=== PATIENT | female | born 1990 | race Two or more races ===

== ENCOUNTER 2021-07-10 09:29 | Emergency (ER) | payer SELFPAY ==
[~2021-07-10] VITALS: Ht 167.6 cm; Wt 108.6 kg
[2021-07-10] MEDS ORDERED: IBUPROFEN 200 MG TABLET. PO ONE (10:00)
[2021-07-10] MEDS ORDERED: ACETAMINOPHEN 500 MG TABLET PO ONE (10:00)
--- NOTE | 2021-07-10 10:11 | PHYS DOC ---
General Adult EDM: Chief Complaint: FLU SYMPTOM HPI: HPI: Patient is a 30 year old female [place] who presents with 1.5 days of sore throat, fever/chills, and myalgias. Symptoms have been progressive since yesterday. She had a 1 minute episode of chest pressure that was self resolving. Not exertional. Not pleuritic. No lower extremity edema, redness, recent immobilizations, or surgery. No medications. Denies any associated cough. No throat pain with head/neck movements. Has not received Covid vaccination. Denies sick contacts including any Covid contact. Review of Systems: Review of Systems: Constitutional: Reports subjective fever and chills Eyes: Denies change in visual acuity. [] HENT: Denies nasal congestion. Reports sore throat. Respiratory: Denies cough or shortness of breath. [] Cardiovascular: Reports brief self resolved chest pain. Denies edema. [] GI: Denies abdominal pain, nausea, vomiting, bloody stools or diarrhea. [] : Denies dysuria. [] Musculoskeletal: Reports myalgias. Denies back pain or joint pain. [] Integument: Denies rash. [] Neurologic: Denies headache, focal weakness or sensory changes. [] Endocrine: Denies polyuria or polydipsia. [] Lymphatic: Denies swollen glands. [] Psychiatric: Denies depression or anxiety. [] Heart Score: C/O Chest Pain: Yes HEART Score for Chest Pain: HEART Score for Chest Pain Response (Comments) Value History Slighlty/Non-Suspicious 0 Age < 45 0 Risk Factors No Risk Factors 0 Total 0 Risk Factors: Risk Factors: DM, Current or recent (<one month) smoker, HTN, HLP, family history of CAD, obesity. Risk Scores: Score 0 - 3: 2.5% MACE over next 6 weeks - Discharge Home Score 4 - 6: 20.3% MACE over next 6 weeks - Admit for Clinical Observation Score 7 - 10: 72.7% MACE over next 6 weeks - Early Invasive Strategies Current Medications: Current Medications Medications (Trade) Dose Ordered Sig/Elizabeth Start Time Stop Time Status Last Admin Dose Admin Acetaminophen (Tylenol) 1,000 mg 1X ONCE 07/10/21 10:00 07/10/21 10:01 UNV Ibuprofen (Motrin) 600 mg 1X ONCE 07/10/21 10:00 07/10/21 10:01 UNV Physical Exam: PE: Constitutional: Well developed, well nourished, no acute distress, non-toxic appearance. [] HENT: Uvula midline, mild posterior oropharyngeal erythema, edematous tonsils with exudates bilaterally. No stridor. Moves neck freely side to side without difficulty. Left anterior tender cervical lymphadenopathy. Eyes: PERRLA, EOMI, conjunctiva normal, no discharge. [] Cardiovascular:Heart rate regular rhythm, no murmur [] Lungs & Thorax: Bilateral breath sounds clear to auscultation. Normal work of breathing [] Abdomen: Bowel sounds normal, soft, no tenderness, no masses, no pulsatile masses. [] Skin: Warm, dry, no erythema, no rash. [] Back: No tenderness, no CVA tenderness. [] Extremities: No tenderness, no cyanosis, no clubbing, ROM intact, no edema. [] Neurologic: Alert and oriented X 3, normal motor function, normal sensory function, no focal deficits noted. [] Psychologic: Affect normal, judgement normal, mood normal. [] EKG: EKG: Sinus. Rate 104. No ST elevation, depression, Q waves, or T wave inversion. Normal intervals. Normal axis.[] Radiology/Procedures: Radiology/Procedures: [] Impression: [facility] [address] [place] [address] IMAGING REPORT Signed PATIENT: NAN CLIFOFRDACCOUNT: [id number] : 1990 LOCATION: ER AGE: 30 SEX: F EXAM STATUS: PRE ER ORD. PHYSICIAN: PRASHANT AGUIRRE MD REASON: chest pressure PROCEDURE: CHEST AP ONLY XR CHEST 1V CLINICAL INDICATIONS: Reason: chest pressure / Spl. Instructions: / History: COMPARISON: None available. Findings: There is mild interstitial thickening bilaterally. No lung consolidation or pleural effusion or pneumothorax is seen. The heart size, pulmonary vasculature, mediastinum and both jessica are unremarkable. IMPRESSION: There is mild interstitial thickening bilaterally. This may be seen with bronchitis or central interstitial pneumonitis. No lung consolidation is seen otherwise. Electronically signed by: Anthony De La Cruz MD (07/10/2021 10:50 AM) [id number] DICTATED and SIGNED BY: ANTHONY DE LA CRUZ MD DATE: 07/10/21 [id number] Course & Med Decision Making: Course & Med Decision Making Pertinent Labs and Imaging studies reviewed. (See chart for details) Patient a 30-year-old female who presents with sore throat, myalgias, subjective fever. Also reported brief, self resolving chest discomfort, EKG nonischemic, no risk factors for ACS. Do not feel that she requires troponin to further cardiac work-up. Given the chest discomfort, will obtain a radiograph of the chest. Not pleuritic, no associated DVT symptoms, no fevers infectious symptoms feel PE is unlikely. Will not pursue PE work-up. We will check strep, Covid, influenza test. Too early for an accurate mononucleosis screen. 1010 Strep test is positive test positive, patient states that she had a recent miscarriage. Likely still coming down. Patient counseled on results and need for OB follow-up. We will treat strep throat with amoxicillin. [id number] Jessica Disclaimer: Jessica Disclaimer: This electronic medical record was generated, in whole or in part, using a voice recognition dictation system. Departure Departure Impression: Primary Impression: Strep pharyngitis Disposition: HOME / SELF CARE / HOMELESS Condition: STABLE Patient Instructions: Strep Throat Scripts Amoxicillin (AMOXICILLIN) 500 Mg Capsule 1 CAP PO Q12HR for infection for 7 Days, #14 CAP 0 Refills Prov: PRASHANT AGUIRRE MD 07/10/21 PRASHANT AGUIRRE MD Jul 10, 2021 10:11
[2021-07-10 10:31] LABS: INFLUENZA A PATIENT NEGATIVE (NEGATIVE); INFLUENZA B PATIENT NEGATIVE (NEGATIVE)
--- NOTE | 2021-07-10 10:42 | EKG ---
[facility] [address] [place] [address] Test Date: 2021-07-10 Test Time: 10:15:06 Pat Name: NAN CLIFFORD Department: Room: Gender: F Relationship Manager: : 1990 Requested By: PRASHANT AGUIRRE Order Number: [id number] Reading MD: Domenic Bravo Measurements Intervals Sharon Rate: 104 P: 39 [place]: 156 QRS: 22 QRSD: 82 T: 22 QT: 314 QTc: 413 Interpretive Statements SINUS TACHYCARDIA Electronically Signed On 07-10-2021 10:42:00 VICE PRESIDENT by Domenic Bravo
--- NOTE | 2021-07-10 10:52 | RAD ---
XR CHEST 1V CLINICAL INDICATIONS: Reason: chest pressure / Spl. Instructions: / History: COMPARISON: None available. Findings: There is mild interstitial thickening bilaterally. No lung consolidation or pleural effusio n or pneumothorax is seen. The heart size, pulmonary vasculature, mediastinum and both jessica are unrem arkable. IMPRESSION: There is mild interstitial thickening bilaterally. This may be seen with bronchitis or ce ntral interstitial pneumonitis. No lung consolidation is seen otherwise. Electronically signed by: Don De La Cruz MD (07/10/2021 10:50 AM) [id number]
[2021-07-10] MEDS ORDERED: AMOX500C PO (12:11)
[2021-07-10 12:27] VITALS: BP 116/69
--- NOTE | 2021-07-11 17:09 | NUR ---
IP: Informed pt of negative covid test. Pt verbalized understanding.
== END 2021-07-10 12:35 | disposition home or self-care (01) ==
LOC: ER 09:29
DX: J02.0 Streptococcal pharyngitis (principal); B95.0 Streptococcus, group A, as the cause of diseases classified elsewhere; Z20.822 Contact with and (suspected) exposure to COVID-19
CPT/HCPCS: 71045; 81025; 87426; 87804; 87880; 93005; 99285; U0003; U0005